=== PATIENT | male | born 1975 | race Asian ===

== ENCOUNTER 2018-07-06 03:15 | Observation (INO) | payer BC ==
[~2018-07-06] VITALS: Ht 167.6 cm; Wt 79.5 kg
[2018-07-06 03:21] VITALS: Ht 167.6 cm; Wt 79.5 kg
[2018-07-06] MEDS ORDERED: ONDANSETRON 4 MG INJ IV STA (03:44)
[2018-07-06] MEDS ORDERED: SOD CHLORIDE 0.9% 1,000 ML IV ONE (04:30)
--- NOTE | 2018-07-06 04:33 | ERD ---
ER Documentation Chief Complaint Chief Complaint Fainted HPI The patient is a 43-year-old male, presenting to the ER because he fainted last night around 10 PM. The woke up and found the patient on the floor, confused. He did not remember passing out, he only remember waking up to use the restroom. He did have some marijuana edible last night around 10 PM, denies any headache, neck pain, did have some nosebleed does not stop spontaneously, denies tongue bite but complains of urinary incontinence. He denies neck pain, chest pain, dyspnea, abdominal pain, vomiting, dysuria, diarrhea. He does not smoke nor drink, smoke marijuana Past medical history: Hypertension, chronic low back pain Past surgical history: None ROS All systems reviewed and are negative except as per history of present illness. Allergies Allergies: Coded Allergies: No Known Allergy (Unverified , 07/06/18) PMhx/Soc Medical and Surgical Hx: pt denies Surgical Hx History of Surgery: No Anesthesia Reaction: No Hx Neurological Disorder: No Hx Respiratory Disorders: No Hx Cardiac Disorders: Yes (HTN, HLD) Hx Psychiatric Problems: No Hx Miscellaneous Medical Probl: No Hx Alcohol Use: Yes (OCCASIONALLY) Hx Substance Use: Yes (MARIJUANA) Hx Tobacco Use: No Smoking Status: Never smoker Physical Exam Vitals Vital Signs Date Temp Pulse Resp B/P (MAP) Pulse Ox O2 O2 Flow FiO2 Time Delivery Rate 07/06/18 77 11 121/86 100 Room Air 03:58 (98) 07/06/18 97.3 69 18 119/88 100 03:21 (98) Physical Exam Const: No acute distress. Head: Atraumatic. Eyes: Normal Conjunctiva. ENT: Normal External Ears, Nose and Mouth. Neck: Full range of motion. No meningismus. Resp: Clear to auscultation bilaterally. Cardio: Regular rate and rhythm. Abd: Soft, non distended, normal bowel sounds, non tender. Skin: No petechiae or rashes. Back: No midline or flank tenderness. Ext: No cyanosis, or edema. Neur: Awake and alert. No focal deficit Psych: Normal Mood and Affect. Result Diagram: 07/06/18 0338 07/06/18 0338 Results 24 hrs Laboratory Tests Test 07/06/18 03:38 07/06/18 03:47 White Blood Count 13.9 10^3/ul Red Blood Count 5.24 10^6/ul Hemoglobin 15.2 g/dl Hematocrit 44.2 % Mean Corpuscular Volume 84.4 fl Mean Corpuscular Hemoglobin 29.0 pg Mean Corpuscular Hemoglobin Concent 34.4 g/dl Red Cell Distribution Width 13.1 % Platelet Count 324 10^3/UL Mean Platelet Volume 10.3 fl Immature Granulocytes % 0.400 % Neutrophils % 51.4 % Lymphocytes % 38.1 % Monocytes % 6.6 % Eosinophils % 2.9 % Basophils % 0.6 % Nucleated Red Blood Cells % 0.0 /100WBC Immature Granulocytes # 0.050 10^3/ul Neutrophils # 7.2 10^3/ul Lymphocytes # 5.3 10^3/ul Monocytes # 0.9 10^3/ul Eosinophils # 0.4 10^3/ul Basophils # 0.1 10^3/ul Nucleated Red Blood Cells # 0.0 10^3/ul Prothrombin Time 11.5 Sec Prothrombin Time Ratio 0.9 INR International Normalized Ratio 0.83 Activated Partial Thromboplast Time 24.3 Sec Sodium Level 144 mmol/L Potassium Level 3.3 mmol/L Chloride Level 107 mmol/L Carbon Dioxide Level 25 mmol/L Anion Gap 12 Blood Urea Nitrogen 25 mg/dl Creatinine 1.12 mg/dl Est Glomerular Filtrat Rate mL/min > 60 mL/min Glucose Level 148 mg/dl Calcium Level 9.8 mg/dl Troponin I < 0.012 ng/ml Ethyl Alcohol Level < 10.0 mg/dl Bedside Glucose 141 mg/dL Current Medications Medications Dose Sig/Ruthy Start Time Status Last (Trade) Ordered Route PRN Stop Time Admin Dose Reason Admin Ondansetron 4 mg ONCE STAT 07/06/18 DC 07/06/18 HCl (Zofran IV 03:44 07/06/18 03:49 Inj) 03:45 Sodium 1,000 ml @ Q1H ONCE 07/06/18 07/06/18 Chloride 1,000 mls/hr IV 04:30 07/06/18 04:40 05:29 Procedures/MDM EKG: Read by emergency physician Rate/Rhythm: Normal Sinus Rhythm 73 beats/min QRS, ST, T-waves: No ST elevation, nonspecific T abnormality Impression: Abnormal EKG [place] [id number] Radiology Main Line: [phone] DIAGNOSTIC IMAGING REPORT Patient: GETACHEW BAUGH : 1975 Age: 43 Sex: M MR #: [id number] [facility] #: [id number] DOS: 07/06/18 0324 Ordering MD: VIC THOMAS MD Location: E/R Room/Bed: PROCEDURE: CHEST - 1 VIEW CLINICAL INDICATION: 43-year-old male with syncope. TECHNIQUE: A single frontal AP portable view of the chest was performed. The images were reviewed on a PACS workstation. COMPARISON: None. FINDINGS: The cardiomediastinal silhouette has a normal appearance. There is no evidence for an infiltrate. There is no evidence for congestive heart failure. There is no evidence for pneumothorax. The osseous structures are intact. IMPRESSION: No evidence for active cardiopulmonary disease. .Dmitriy Paiz MD, MD Date Time Electronically viewed and signed by .Dmitriy Paiz MD, MD on 07/06/2018 04:39 .M/ CC: VIC THOMAS MD [id number] Drug screen/brain CT/facial bone CT/cervical spine CT: Pending MEDICAL MAKING DECISION: The patient is a 43-year-old male, presenting with acute syncope, acute hypokalemia, acute dehydration. He was treated with 1 L normal saline for acute dehydration, Zofran 4 mg IV for nausea, potassium chloride 40 mg p.o. for acute hypokalemia with good response The differential diagnoses considered include but are not limited to dehydration, electrolyte imbalance, substance abuse, arrhythmogenic right ventricular dysplasia, Brugada syndrome, left ventricular hypertrophy, pulmonary embolism, QT abnormality, Gpft-Rpwbshpbi-Nfoio. Departure Diagnosis: Primary Impression: Syncope Additional Impressions: Hypokalemia Dehydration Condition: Stable Comments I discussed the findings with the patient. I discussed the patient with the hospitalist Dr Harmon . who was made aware of the lab, the treatment, the patient condition. The patient is admitted to [facility] Disclaimer: Inadvertent spelling and grammatical errors are likely due to EHR/dictation software use and do not reflect on the overall quality of patient care. Also, please note that the electronic time recorded on this note does not necessarily reflect the actual time of the patient encounter. VIC THOMSA MD Jul 06, 2018 04:33
[2018-07-06] MEDS ORDERED: SOD CHLORIDE 0.9% 1,000 ML IV SCH (05:27)
[2018-07-06] MEDS ORDERED: ONDANSETRON 4 MG INJ IV PRN (05:30)
[2018-07-06] MEDS ORDERED: ACETAMINOPHEN 325 MG TAB PO PRN (05:30)
[2018-07-06] MEDS ORDERED: BISACODYL (EC) 5 MG TAB PO PRN (05:30)
[2018-07-06] MEDS ORDERED: DOCUSATE SODIUM 100 MG CAP PO PRN (05:30)
[2018-07-06] MEDS ORDERED: NACL 0.9% 3 ML SYG IV SCH (05:30)
[2018-07-06] MEDS ORDERED: POTASSIUM CHLORIDE (SR) 20 MEQ TAB PO ONE (05:31)
[2018-07-06] MEDS ORDERED: MULTI PO (05:55)
[2018-07-06] MEDS ORDERED: GARL100T PO (05:55)
[2018-07-06] MEDS ORDERED: OMEG-135 PO (05:55)
[2018-07-06] MEDS ORDERED: ASPI-535 PO (05:55)
[2018-07-06] MEDS ORDERED: QUIN5TAB15 PO (05:55)
[2018-07-06] MEDS ORDERED: KETOROLAC 30 MG INJ IV STA (07:58)
--- NOTE | 2018-07-06 08:05 | HP ---
Date/Time of Note Date/Time of Note DATE: 07/06/18 TIME: 07:55 Assessment/Plan VTE Prophylaxis SCD applied (from Nsg): Yes Pharmacological prophylaxis: NA/contraindicated Pharm contraindication: low risk/ambulating Lines/Catheters IV Catheter Type (from Nrsg): Saline Lock Assessment/Plan Hospital Course This is a 43-year-old male being admitted to the telemetry floor for observation for: #1 syncope: Neurocardiogenic versus situational versus cardiogenic versus vasovagal: Likely multifactorial in the setting of urinary urgency, marijuana use, back pain. EKG appears nonischemic. Will check cardiac enzymes x2. Will check an echocardiogram. Carotid Doppler ultrasound. Orthostatic vital signs. #2 Cervical spine canal stenosis: CT scan spine showed: Multilevel cervical sp ondylosis/enthesopathy, as described above with moderate to severe canal stenosis and severe bilateral foraminal C4-C5 through C6-C7. Findings could be correlated with dedicated MRI for further evaluation as warranted. Consider outpatient MRI. #3 chronic lower back pain: We will get lumbar x-rays. Toradol #4 hypertension: We will check orthostatics, resume blood pressure medications as indicated, will check hemoglobin A 1C, lipid, TSH #5 DVT GI prophylaxis: SCDs, no GI prophylaxis indicated Further treatment strategy will be implemented as per the clinical course Result Diagram: 07/06/188 07/06/18 0338 Results 24hrs Laboratory Tests Test 07/06/18 03:37 07/06/18 03:38 07/06/18 03:47 Magnesium Level 1.9 Triglycerides Level 222 H Cholesterol Level 198 LDL Cholesterol, Calculated 127 HDL Cholesterol 27 Cholesterol/HDL Ratio 7.3 Thyroid Stimulating Hormone (TSH) 3.820 White Blood Count 13.9 H Red Blood Count 5.24 Hemoglobin 15.2 Hematocrit 44.2 Mean Corpuscular Volume 84.4 Mean Corpuscular Hemoglobin 29.0 Mean Corpuscular Hemoglobin Concent 34.4 Red Cell Distribution Width 13.1 Platelet Count 324 Mean Platelet Volume 10.3 Immature Granulocytes % 0.400 Neutrophils % 51.4 Lymphocytes % 38.1 Monocytes % 6.6 Eosinophils % 2.9 Basophils % 0.6 Nucleated Red Blood Cells % 0.0 Immature Granulocytes # 0.050 H Neutrophils # 7.2 Lymphocytes # 5.3 H Monocytes # 0.9 Eosinophils # 0.4 Basophils # 0.1 Nucleated Red Blood Cells # 0.0 Prothrombin Time 11.5 L Prothrombin Time Ratio 0.9 INR International Normalized Ratio 0.83 Activated Partial Thromboplast Time 24.3 Sodium Level 144 Potassium Level 3.3 L Chloride Level 107 Carbon Dioxide Level 25 Anion Gap 12 Blood Urea Nitrogen 25 H Creatinine 1.12 Est Glomerular Filtrat Rate mL/min > 60 Glucose Level 148 Calcium Level 9.8 Troponin I < 0.012 Ethyl Alcohol Level < 10.0 H Bedside Glucose 141 HPI/ROS Admit Date/Time Admit Date/Time Hx of Present Illness Chief complaint: Syncope This is a 43-year-old male who presented to the ER after fainting yesterday at approximately 10 PM at home. Presented in the to the ER with his . As per the patient he reports that he had gone to the [place] [employer] with his children earlier in the day and when he came home he had exacerbation of his lower back pain which he has had chronically. He states that he took his blood pressure medication around 8 PM. And later on because his back pain was worse he took a new batch of edibles that he takes for his pain. Next thing he remembers is waking up in the bathroom on the floor. He does also vaguely reports that he went to the bathroom as he had a sensation to urinate. His reports that she heard a thud and when she went to the room she noticed him on the floor and he had a bloody nose and when he stood up he urinated. Patient denies any chest pain or shortness of breath. denies any sort of convulsive activity or seizure-like activity. Allergies: NKDA Medications: See KOSTAS SUÁREZ Const: As per HPI Eyes : No pain discharge or redness or change in visual acuity ENT: No pain, sore throat, congestion, congestion, dysphagia or discharge Respiratory: No shortness of breath, cough, sputum, wheezing, or pleuritic pain Cardiovascular: No chest pain, palpitation, PND, or edema GI : no change in appetite, abdominal pain, nausea, vomiting, diarrhea, constipation, or change in the color his stool Genitourinary: No dysuria, hematuria, flank pain , discharge or CVA tenderness Musculoskeletal: No joint pain, back pain, neck pain, restricted range of motion in neck or joints Skin: No rash, bruising or hives Neuro: As per HPI Endocrine: No polyuria, polydipsia, temperature intolerance Psych: No hallucination, depression, anxiety or suicidal ideation PMH/Family/Social Past Medical History Hypertension, chronic low back pain Medications Current Medications Sodium Chloride 1,000 ml @ 80 mls/hr [id number] IV Last administered on 07/06/18at 05:55; Admin Dose 80 MLS/HR; Start 07/06/18 at 05:27; Stop 07/06/18 at 17:56 IV Flush (NS 3 ml) 3 ml PER PROTOCOL IV ; Start 07/06/18 at 05:30 Ondansetron HCl (Zofran Inj) 4 mg Q6H PRN IV NAUSEA/VOMITING; Start 07/06/18 at 05:30 Acetaminophen (Tylenol Tab) 650 mg Q6H PRN PO .PAIN 1-3 OR TEMP; Start 07/06/18 at 05:30 Docusate Sodium (Colace) 100 mg Q12H PRN PO .CONSTIPATION; Start 07/06/18 at 05:30 Bisacodyl (Dulcolax) 5 mg DAILY PRN PO .CONSTIPATION; Start 07/06/18 at 05:30 Coded Allergies: No Known Allergy (Unverified , 07/06/18) Past Surgical History Past Surgical Hx: no surgical history Family History Significant Family History: no pertinent family hx Social History Alcohol Use: none Smoking Status: Never smoker Drug Use: marijuana Exam/Review of Systems Vital Signs Vitals Vital Signs Date Temp Pulse Resp B/P (MAP) Pulse Ox O2 O2 Flow FiO2 Time Delivery Rate 07/06/18 71 14 124/89 100 Room Air 06:10 (101) 07/06/18 97.3 03:21 Exam Exam General: Patient is a pleasant male currently lying in bed in no acute distress HEENT: Atraumatic, normocephalic. The pupils are equal, round and reactive. Extraocular motor are intact Neck: Supple with full range of motion. No rigidity or meningismus Chest: Nontender Lungs: Clear to auscultation bilaterally no crackles rales or wheezing Heart: Normal S1-S2, Regular rhythm and rate. No murmurs appreciated on auscultation Abdomen: Soft , nontender, nondistended , bowel sounds are present. No guarding no rebound tenderness , No masses or organomegaly. No costovertebral temporal angle mass Extremities: Normal to inspection, no edema no cyanosis Musculoskeletal: Paraspinal tenderness to palpation along the lumbar spine Neurologic: Normal mental status, speech normal, cranial nerves II through XII are intact, motor and sensory are intact, no focal weakness Additional Comments EKG: Normal sinus rhythm at approximately 73 bpm, no ST or T wave abnormalities concerning for acute ischemia PROCEDURE: CT BRAIN WITHOUT CONTRAST CLINICAL INDICATION: 43-year-old male with syncope. TECHNIQUE: The study was performed utilizing [facility]. Direct axial sections were obtained from the foramen magnum to the vertex without the use of intravenous contrast material. Sagittal and coronal reformations were obtained. One or more the following dose reduction techniques were utilized: automated exposure control, adjustment of the mA and/or kV according to patient's size and/or use of iterative reconstruction technique. DICOM images are available. The images were viewed on a PACS workstation. CTD/vol = 39.64 mGy; Total Exam DLP = 634.23 mGy.cm. COMPARISON: None. FINDINGS: There is mild prominence of the sulci and cisternal spaces consistent with diffuse volume loss. Otherwise, the ventricles have a normal shape and position. There is no evidence for mass effect or midline shift. There is artifact identified within the left inferior frontal extra-axial region on axial images 2-13 through 2-16. There is no evidence for acute intra or extra-axial blood. The bony calvarium is intact. There is a prominent pacchionian granulation within the right frontal scalp. There is opacification of the left frontal sinus with [id number] mucosal thickening within the ethmoid air cells and maxillary sinuses. The mastoid air cells are without significant soft tissue. IMPRESSION: 1. Mild diffuse volume loss. 2. Opacified left frontal sinus with [id number] mucosal thickening within the ethmoid air cells and maxillary sinuses. .Dmitriy Paiz MD, Date Time Electronically viewed and signed by .Dmitriy Paiz MD, on 07/06/2018 05:51 .M/ CC: VIC THOMAS MD [id number] PROCEDURE: CT Cervical Spine without contrast. CLINICAL INDICATION: Syncope TECHNIQUE: Axial images were obtained of the cervical spine from the skull base through the thoracic inlet. Sagittal and coronal reformatted images were performed. The CTDIvol is 22 mGy and the DLP is 597 mGycm. DICOM images are available. One or more of the following dose reduction techniques were utilized: 1.) Automated exposure control 2.) Adjustment of the mA +/- kV according to patient's size 3.) Use of iterative reconstruction technique. COMPARISON: Syncope FINDINGS: There is no acute fracture or evidence for traumatic malalignment. There is no significant widening of the atlantodental interval. Craniocervical junction is unremarkable. The vertebral body heights are maintained. There is no significant spondylolisthesis. There is reversal at C4-C5. There is multilevel disc space narrowing from C4-C5 through C7-T1. Prevertebral and paravertebral soft tissues are grossly unremarkable. There is multilevel canal stenosis and foraminal narrowing secondary to disc osteophyte complexes, uncovertebral spurring and facet arthrosis. Multifactorial disease results in overall moderate to severe canal stenosis from C4-C5 through C6-C7. Severe bilateral foraminal narrowing is also present at these levels. IMPRESSION: No definite evidence for acute fracture or traumatic malalignment. Multilevel cervical spondylosis/enthesopathy, as described above with moderate to severe canal stenosis and severe bilateral foraminal C4-C5 through C6-C7. Findings could be correlated with dedicated MRI for further evaluation as warranted. RPTAT: HAP Admit-r Pal, Physician Date Time Electronically viewed and signed by Admit-r Craig, Physician on 07/06/2018 06:00 AP/ CC: VIC THOMAS MD [id number] PROCEDURE: CHEST - 1 VIEW CLINICAL INDICATION: 43-year-old male with syncope. TECHNIQUE: A single frontal AP portable view of the chest was performed. The images were reviewed on a PACS workstation. COMPARISON: None. FINDINGS: The cardiomediastinal silhouette has a normal appearance. There is no evidence for an infiltrate. There is no evidence for congestive heart failure. There is no evidence for pneumothorax. The osseous structures are intact. IMPRESSION: No evidence for active cardiopulmonary disease. .Dmitriy Paiz MD, MD Date Time Electronically viewed and signed by .Dmitriy Paiz MD, MD on 07/06/2018 04:39 .M/ CC: VIC THOMAS MD [id number] PROCEDURE: CT FACIAL BONES WITHOUT CONTRAST CLINICAL INDICATION: 43-year-old male with syncope and trauma. TECHNIQUE: The study was performed utilizing a [employer] V[employer] 64-slice CT scanner. Direct axial sections were obtained through the facial bones without the use of intravenous contrast material. Automated exposure control and iterative reconstruction techniques were utilized for this examination. 3D reconstructions were obtained. Sagittal and coronal reformations were obtained. DICOM images are available. The images were reviewed on a PACS workstation. CTD/vol = 29.34 mGy; Total Exam DLP = 554.63 mGy.cm. COMPARISON: CT brain obtained concurrently. FINDINGS: There is no evidence for an acute facial bone fracture. The globes are intact. There are no intra- or extra-conal masses. There is opacification of the left frontal sinus. There is [id number] mucosal thickening within the left anterior ethmoid air cells. There is mild mucosal thickening within the rest of the ethmoid air cells bilaterally and maxillary sinuses. No air-fluid levels are noted. The right ostiomeatal unit is patent but narrowed. The left ostiomeatal unit is obstructed. There is rightward nasal septal deviation with inferior right nasal septal spur present. IMPRESSION: 1. No CT evidence for acute facial bone fracture. 2. Opacified left frontal sinus with mucosal thickening within the ethmoid air cells and maxillary sinuses. 3. Narrowed right and obstructed left ostiomeatal units. 4. Rightward nasal septal deviation. .Dmitriy Paiz MD, MD Date Time Electronically viewed and signed by .Dmitriy Paiz MD, MD on 07/06/2018 05:51 .M/ CC: VIC THOMAS MD [id number] SUSHANT VENTURA Jul 06, 2018 08:05
[2018-07-06] MEDS ORDERED: ASPIRIN (EC) 81 MG TAB PO SCH (09:30)
--- NOTE | 2018-07-06 12:47 | PDOCDIS ---
Discharge Instructions CONDITION [id number] Patient Condition: [id number] Stable HOME CARE INSTRUCTIONS: [id number] Diet Instructions: [id number] Low Fat /Cholesterol FOLLOW UP/APPOINTMENTS Follow-up Plan Follow-up With primary care physician in 1 week LELAND ANDERSON NP Jul 06, 2018 12:47
--- NOTE | 2018-07-06 12:55 | DS ---
Date/Time of Note Date/Time of Note DATE: 07/06/18 TIME: 12:51 Discharge Summary Admission/Discharge Info Admit Date/Time Discharge Date/Time Discharge Diagnosis 1. Hypertension 2. Dyslipidemia 3. Syncope, likely vasovagal. Resolved. 4. Cannabinoid use. 5. Spinal stenosis. Patient Condition: Stable Procedures 07/06/2018. Brain CT. IMPRESSION: 1. Mild diffuse volume loss. 2. Opacified left frontal sinus with [id number] mucosal thickening within the ethmoid air cells and maxillary sinuses. 07/06/2018. CT cervical spine without contrast IMPRESSION: No definite evidence for acute fracture or traumatic malalignment. Multilevel cervical spondylosis/enthesopathy, as described above with moderate to severe canal stenosis and severe bilateral foraminal C4-C5 through C6-C7. Findings could be correlated with dedicated MRI for further evaluation as warranted. 07/06/18. Carotid ultrasound. IMPRESSION: 1. No evidence of a significant stenosis of the right internal carotid artery. 2. No evidence of a significant stenosis of the left internal carotid artery. 3. Normal antegrade flow in the vertebral arteries bilaterally. Measurement of carotid stenosis is based on peak systolic and diastolic velocity parameters that correlate to the residual internal carotid diameter with [place] Symptomatic Carotid Endarterectomy Trial (NASCET) based stenosis levels. Normal ( < 50% ) - ICA peak systolic velocity < 125 cm/sec, ICA / CCA ratio < 2.0 Moderate stenosis ( 50 - 69% ) - ICA peak systolic velocity 125 - 230 cm/sec, ICA / CCA ratio 2.0 - 4.0 Severe stenosis ( >70% ) - ICA peak systolic velocity > 230 cm/sec, ICA / CCA ratio > 4.0 07/06/2018. Lumbar spine x-ray. IMPRESSION: Mild vertebral enthesopathy. Hospital Course 43-year-old male with a history of triglyceridemia, hypertension, back pain with spinal stenosis and cannabinoid use, admitted with syncopal episode happened while patient was trying to urinate in the bathroom. Apparently, he felt excruciating back pain as he went to a water [place] park with some amusement rides and when he tried to urinate, he felt the pain worse and the next thing he noticed was waking up from the floor. Patient denied any headache, dizziness, vision changes, speech difficulties prior to eat. Patient did not have any focal deficit. Patient did not have any chest pain, palpitation, shortness of breath or other discomfort. In the emergency room, patient had extensive imaging studies negative for any stroke or acute trauma. His troponins also negative. Vital signs stable. CT also showed spinal stenosis with no neurovascular compromise on exam. Patient would benefit from outpatient MRI. At this time, patient is feeling back to baseline. He does not want to be staying for another imaging studies as he is feeling back to baseline and wanted to be discharged home. At this time, in my assessment, he does not have any dizziness. He is able to recall what happened to him. He does not have any focal deficit. His troponin and EKG is negative. We will also order a second troponin and if it is negative, it is reasonable to discharge patient with outpatient primary care follow-up in a week. Patient and family verbalized instructions and is very thankful for the workup he received in the emergency room and was excited about going home. Approximately 60 m spent on coordinating the discharge on this patient. Patient was seen in collaboration with [facility] Reported Medications Garlic* (Garlic*) 100 Mg Tablet, 100 MG PO DAILY, TAB 07/06/18 Sycamore-3 Fatty Acids/Fish Oil (Fish Oil 1,000 mg Capsule) 1 Each Capsule, 1 EACH PO DAILY, CAP 07/06/18 Multivitamins* (Theragran*) 1 Tab Tab, 1 TAB PO DAILY, TAB 07/06/18 Quinapril Hcl (Quinapril Hcl) 5 Mg Tablet, 5 MG PO DAILY, #60 TAB 07/06/18 Aspirin Ec (Aspir 81) 81 Mg Tablet.dr 81 MG PO DAILY, #30 TAB 07/06/18 Follow-up Plan Follow-up With primary care physician in 1 week Primary Care Provider Not On Staff Doctor Pending Labs Laboratory Tests Test 07/06/18 03:37 07/06/18 03:38 07/06/18 03:47 Hemoglobin A1c 5.0 % (0-5.9) Magnesium Level 1.9 mg/dl (1.7-2.5) Triglycerides 222 mg/dl (0-149) Level Cholesterol Level 198 mg/dl (100-200) LDL Cholesterol, 127 mg/dl Calculated HDL Cholesterol 27 mg/dl (27-67) Cholesterol/HDL 7.3 RATIO Ratio Thyroid Stimulating 3.820 Hormone (TSH) MIU/L (0.465-4.680) White Blood Count 13.9 10^3/ul (4.8-10.8) Red Blood Count 5.24 10^6/ul (4.70-6.10 ) Hemoglobin 15.2 g/dl (14.0-18.0) Hematocrit 44.2 % (42.0-52.0) Mean Corpuscular 84.4 Volume fl (82.0-101.0) Mean Corpuscular 29.0 Hemoglobin pg (29.0-33.0) Mean Corpuscular 34.4 Hemoglobin Concent g/dl (32.0-37.0) Red Cell 13.1 % (11.5-14.5) Distribution Width Platelet Count 324 10^3/UL (140-415) Mean Platelet 10.3 fl (7.4-10.4) Volume Immature 0.400 Granulocytes % % (0.001-0.429) Neutrophils % 51.4 % (39.0-77.0) Lymphocytes % 38.1 % (15.0-51.0) Monocytes % 6.6 % (0.0-11.0) Eosinophils % 2.9 % (0.0-7.0) Basophils % 0.6 % (0.0-2.0) Nucleated Red Blood 0.0 Cells % /100WBC (0.0-0.0) Immature 0.050 Granulocytes # 10^3/ul (0.0-0.031 ) Neutrophils # 7.2 10^3/ul (1.6-7.5) Lymphocytes # 5.3 10^3/ul (0.8-2.9) Monocytes # 0.9 10^3/ul (0.3-0.9) Eosinophils # 0.4 10^3/ul (0.0-0.5) Basophils # 0.1 10^3/ul (0.0-0.1) Nucleated Red Blood 0.0 Cells # 10^3/ul (0.0-0.0) Prothrombin Time 11.5 Sec (11.9-14.9) Prothrombin Time 0.9 Ratio INR International 0.83 Normalized Ratio Activated 24.3 Partial Thromboplas Sec (23.0-35.0) t Time Sodium Level 144 mmol/L (135-144) Potassium Level 3.3 mmol/L (3.5-5.1) Chloride Level 107 mmol/L (97-110) Carbon Dioxide 25 mmol/L (21-31) Level Anion Gap 12 (5-13) Blood Urea 25 mg/dl (7-20) Nitrogen Creatinine 1.12 mg/dl (0.61-1.24) Est Glomerular > 60 mL/min (>60) Filtrat Rate mL/min Glucose Level 148 mg/dl (70-220) Calcium Level 9.8 mg/dl (8.4-10.2) Troponin I < 0.012 ng/ml (0.000-0.120 ) Urine Opiates Negative (NEGATIVE Screen ) Urine Barbiturates Negative (NEGATIVE ) Urine Amphetamines Negative (NEGATIVE Screen ) Urine Negative (NEGATIVE Benzodiazepines ) Screen Urine Cocaine Negative (NEGATIVE Screen ) Urine Cannabinoids Positive (NEGATIVE ) Ethyl Alcohol < 10.0 mg/dl (0-0) Level Bedside Glucose 141 mg/dL (70-220) LELAND ANDERSON NP Jul 06, 2018 12:55
[2018-07-06 14:04] VITALS: BP 123/92; PULSE 72; RESP 16
--- NOTE | 2018-07-09 20:48 | RADRPT ---
Echocardiogram Report Patient Name: Demetra BAUGHnt ID: [id number] : 1975 (43y 6m)Study Date: 07/06/2018 1:07:18 PM Gender: Marianacession #: [id number] Tech: [email or web address] Location: Ref.Physician: SUSHANT VENTURA Height(Cm): BSA: Weight(Kg): Quality: GoodAccount #: Procedures: Echocardiographic Report: Transthoracic echocardiogram with complete 2D, M-Mode, and doppler examination. Indications: Syncope. Measurements: 2D/M Mode Doppler Measurement Value Normal Range Measurement Value Normal Range LVIDd 2D 4.8 [ 4.2 - 5.8 ] cm GIACOMO Vmax 2.3 [ 2.0 - 4.0 ] cm2 LVIDs 2D 3.3 [ 2.5 - 4.0 ] cm AV Mean Riaz 1.0 [ 70.0 - 90.0 ] cm/sec LVPWd 2D 1.0 [ 0.6 - 1.0 ] cm AV Mean PG 5.0 [ 2.0 - 4.0 ] mmHg IVSd 2D 1.0 [ 0.6 - 1.0 ] cm AV Peak Riaz 1.4 [ 100.0 - 170.0 ] cm/sec IVS/LVPW 2D 1.0 ratio AV Peak PG 7.0 [ 2.0 - 9.0 ] mmHg LVOT Diam 2.0 [ 2.3 - 2.9 ] cm AV VTI 28.5 cm LVOT Area 3.1 cm2 LVOT Peak Riaz 1.0 [ 70.0 - 110.0 ] cm/sec LVOT Peak PG 4.0 [ 2.0 - 6.0 ] mmHg MV E Peak Riaz 0.1 [ 60.0 - 130.0 ] cm/sec MV A Peak Riaz 0.6 [ 100.0 - 120.0 ] cm/sec MV E/A 0.1 [ 0.8 - 1.5 ] ratio MV Decel Time 201 [ 104 - 258 ] msec Lat E` Riaz 0.1 [ 10.0 - 15.0 ] cm/sec Med E` Riaz 0.1 cm/sec MV E/A 0.1 [ 0.8 - 1.5 ] ratio PV Peak Riaz 0.8 [ 40.0 - 80.0 ] cm/sec PV Peak PG 2.0 mmHg Findings: Left Ventricle: Normal left ventricular systolic function. Normal left ventricular cavity size. Normal left ventricular wall thickness. Ejection fraction is visually estimated at 60 %. Tissue Doppler/Mitral Doppler indices are within normal limits. Right Ventricle: Normal right ventricular size. Normal right ventricular systolic function. Left Atrium: The left atrium is normal in size. Right Atrium: The right atrium is normal in size. Mitral Valve: Normal appearance of the mitral valve. Normal appearance and function of the mitral valve with trace physiologic regurgitation. Aortic Valve: Normal appearance of the aortic valve. No significant aortic stenosis or insufficiency. Tricuspid Valve: Normal appearance and function of the tricuspid valve with trace physiologic regurgitation. Pulmonic Valve: Normal pulmonic valve appearance. Pericardium: Normal pericardium with no significant pericardial effusion. Aorta: Normal aortic root. IVC: Normal size and normal respiratory collapse consistent with normal right atrial pressure. Conclusions: Normal left ventricular systolic function. Normal left ventricular cavity size. Normal left ventricular wall thickness. Ejection fraction is visually estimated at 60 %. Tissue Doppler/Mitral Doppler indices are within normal limits. Normal right ventricular size. Normal right ventricular systolic function. The left atrium is normal in size. The right atrium is normal in size. No significant valvular stenosis or regurgitation seen. Normal pericardium with no significant pericardial effusion. Electronically Signed By: Thomas Scott 2018-07-09 20:47:57 PDT
== END 2018-07-06 14:05 | disposition home or self-care (01) ==
LOC: E/R 03:15 → TEL 05:26 → E/R 14:05 → CANBEDREQ 14:30
PROVIDERS: ADMIT Family Medicine; ATTEND Family Medicine
DX: R55 Syncope and collapse (principal); E87.6 Hypokalemia; E86.0 Dehydration; M48.02 Spinal stenosis, cervical region; G89.29 Other chronic pain; M54.5 Low back pain; I10 Essential (primary) hypertension; E78.5 Hyperlipidemia, unspecified; F12.90 Cannabis use, unspecified, uncomplicated
CPT/HCPCS: 36415; 70450; 70486; 71045; 72100; 72125; 80048; 80061; 80307; 82962; 83036; 83735; 84443; 84484; 85025; 85610; 85730; 93005; 93306; 93880; 96374; 99285; G0378; J1885; J2405; J7030